=== PATIENT | female | born 1985 | race Caucasian/White ===

== ENCOUNTER 2017-09-08 02:59 | Emergency (ER) | payer MEDICARE ==
[~2017-09-08] VITALS: Ht 160 cm; Wt 50.0 kg
[2017-09-08 03:00] VITALS: BP 137/60; PULSE 62; RESP 15; TEMP 98.5; O2SAT 100
[2017-09-08] MEDS ORDERED: ZOFR4TAB3 SL (03:25)
[2017-09-08] MEDS ORDERED: CHLO25CA9 PO (03:25)
--- NOTE | 2017-09-08 03:26 | PD ---
HPI Chief Complaint: Alcohol/Drug Intoxication Time Seen by Provider: 03:09 Travel History International Travel<30 days: No Contact w/Intl Traveler<30days: No Traveled to known affect area: No History of Present Illness HPI The patient is a 32-year-old female who presents to the emergency department for opiate withdrawal. The patient has a long history of opiate dependence secondary to previous surgery on Percocet. The patient then was transitioned to Suboxone. The patient has been tapering her Suboxone over the last several weeks, however, started going to withdrawal today. The patient complains of nausea, crawling skin, epigastric abdominal pain, mild diaphoresis , but denies any diarrhea. Patient is requesting help for her withdrawal, however, does not want to go to [facility] or in inpatient rehabilitation Center. The patient's last dose of Suboxone was on September 05, 1 mg. She denies any current IV drug use. Symptoms are mild to moderate, exacerbated by history of opiate dependence, and there are no current alleviating factors. She did try taking Benadryl prior to arrival with minimal alleviation of her symptoms. [facility] Past Medical History Narrative Medical Opiate dependency Past Surgical History Narrative Surgical Da Sophy surgery for blockage ureters and kidney surgery Social History Tobacco Use: Yes Substance Use: Yes (Suboxone use) Allergies-Medications (Allergen,Severity, Reaction): Coded Allergies: codeine (Verified Allergy, Mild, Hives, 09/08/17) NSAIDS (Non-Steroidal Anti-Inflamma (Verified Adverse Reaction, Intermediate, KIDNEY, 09/08/17) ciprofloxacin (Verified Adverse Reaction, Mild, BURNING, 09/08/17) PT STATES CAUSES IV BURNING AND INFILRATE Reported Meds & Prescriptions Reported Meds & Active Scripts Active Zofran Odt (Ondansetron Odt) 4 Mg Tab 4 Mg SL Q6HR PRN Chlordiazepoxide HCl 25 Mg Capsule 1 Tab PO DIRECTED Review of Systems Except as stated in HPI: all other systems reviewed are Neg General / Constitutional: Positive: Chills Cardiovascular: No: Chest Pain or Discomfort Respiratory: No: Shortness of Breath Gastrointestinal: Positive: Nausea, Abdominal Pain, No: Vomiting Skin: Positive Other (crawling skin sensation) Psychiatric: Positive: Substance Abuse (Percocet and then Suboxone) Physical Exam Narrative GENERAL: Awake, alert, pleasant 32-year-old female who appears her stated age and is in no acute respiratory distress. SKIN: Focused skin assessment warm/dry. HEAD: Atraumatic. Normocephalic. EYES: Pupils equal and round. Pupils are 5 mm bilateral and reactive. ENT: No nasal bleeding or discharge. Slightly dry mucous membranes. NECK: Trachea midline. No JVD. CARDIOVASCULAR: Regular rate and rhythm. No murmur appreciated. RESPIRATORY: No accessory muscle use. Clear to auscultation. Breath sounds equal bilaterally. GASTROINTESTINAL: Abdomen soft, non-tender, nondistended. No rebound tenderness. MUSCULOSKELETAL: No obvious deformities. No clubbing. No cyanosis. No edema. NEUROLOGICAL: Awake and alert. No obvious cranial nerve deficits. Motor grossly within normal limits. Normal speech. Nonfocal. PSYCHIATRIC: Appropriate mood and affect; insight and judgment normal. Data Data Last Documented VS Vital Signs Date Time Temp Pulse Resp B/P (MAP) Pulse Ox O2 Delivery O2 Flow Rate FiO2 09/08/17 03:16 18 100 Room Air 09/08/17 03:00 98.5 62 137/60 (85) Orders Orders Basic Metabolic Panel (Bmp) (09/08/17 03:17) Ondansetron Inj (Zofran Inj) (09/08/17 03:30) Sodium Chlor 0.9% 1000 Ml Inj (Ns 1000 M (09/08/17 03:30) Ed Urine Pregnancytest Poc (09/08/17 03:17) Chlordiazepoxide (Librium) (09/08/17 03:30) Labs Laboratory Tests Test 09/08/17 02:25 Blood Urea Nitrogen 6 MG/DL Creatinine 0.55 MG/DL Random Glucose 79 MG/DL Calcium Level 8.8 MG/DL Sodium Level 142 MEQ/L Potassium Level 3.8 MEQ/L Chloride Level 108 MEQ/L Carbon Dioxide Level 28.9 MEQ/L Anion Gap 5 MEQ/L Estimat Glomerular Filtration Rate 130 ML/MIN MDM Medical Decision Making Medical Screen Exam Complete: Yes Emergency Medical Condition: Yes Medical Record Reviewed: Yes Interpretation(s) Laboratory Tests Test 09/08/17 02:25 Blood Urea Nitrogen 6 MG/DL Creatinine 0.55 MG/DL Random Glucose 79 MG/DL Calcium Level 8.8 MG/DL Sodium Level 142 MEQ/L Potassium Level 3.8 MEQ/L Chloride Level 108 MEQ/L Carbon Dioxide Level 28.9 MEQ/L Anion Gap 5 MEQ/L Estimat Glomerular Filtration Rate 130 ML/MIN Differential Diagnosis Differential diagnosis includes opiate withdrawal, gastritis, opiate dependency. Narrative Course IV was established, labs are drawn and sent, and the patient was placed on cardiac telemetry monitoring and continuous pulse oximetry monitoring. The patient was administered Zofran 4 mg intravenously and Librium 25 mg orally. Bedside test was obtained, was negative. The patient will be discharged home on Zofran and tapering dose of Librium. She is advised to follow-up at [facility] and her symptoms persist, however, she does not want to get a [facility] today. Labs are unremarkable. Patient is stable for outpatient follow-up. Diagnosis Primary Impression: Opiate withdrawal Patient Instructions: General Instructions Additional Instructions: Medications as directed. Plenty fluids to stay hydrated. Follow-up at [facility] if symptoms persist. Med/Other Pt SpecificInfo: Prescription(s) given Scripts Ondansetron Odt (Zofran Odt) 4 Mg Tab 4 MG SL Q6HR Y for Nausea/Vomiting, #10 TAB 0 Refills Prov: Donavon Knox MD 09/08/17 Chlordiazepoxide HCl (Chlordiazepoxide HCl) 25 Mg Capsule 1 TAB PO DIRECTED, #20 Prov: Donavon Knox MD 09/08/17 Disposition: 01 DISCHARGE HOME Condition: Stable Donavon Knox MD Sep 08, 2017 03:26
[2017-09-08] MEDS ORDERED: ONDANSETRON HCL 4 MG/2 ML VIAL IV PUSH ONE (03:30)
[2017-09-08] MEDS ORDERED: chlordiazePOXIDE 25 MG CAP PO ONE (03:30)
[2017-09-08] MEDS ORDERED: SODIUM CHLOR 0.9% 1000 ML INJ 1,000 ML IV ONE (03:30)
[2017-09-08 03:57] LABS: BICARBONATE 28.9 MEQ/L (21.0-32.0); POTASSIUM 3.8 MEQ/L (3.5-5.1)
[2017-09-08 04:26] VITALS: BP 93/53; PULSE 55; RESP 18; O2SAT 100
== END 2017-09-08 04:28 | disposition home or self-care (01) ==
LOC: NEPE 02:59
DX: F11.23 Opioid dependence with withdrawal (principal)
CPT/HCPCS: 80048; 84703; 96374; 99284; J2405; J7030